=== PATIENT | female | born 1965 | race Caucasian/White ===

== ENCOUNTER 2016-08-01 11:49 | Emergency (ER) | payer OTHER | END 2016-08-01 13:40 | disposition home or self-care (01) | DX: J18.9 Pneumonia, unspecified organism (principal); Z87.891 Personal history of nicotine dependence ==

== ENCOUNTER 2019-07-28 15:49 | Outpatient (CLI) | payer OTHER ==
--- NOTE | 2019-08-02 11:05 | Mammography Report ---
Reason: ROUTINE MAMMO Procedure Date: 07/28/2019 Accession Number: [id number] / [id number] Procedure: MGN - Screening Mammo Dig Bilat CPT Code: Final Report FULL RESULT: EXAM: Screening Mammo Dig Bilat DATE: 07/28/2019 4:09 PM CLINICAL HISTORY: The patient is an asymptomatic 54-year-old female. Late childbearing. Family history breast cancer (sister). TECHNIQUE: (B) - Bilateral CC, laterally exaggerated CC, MLO views were obtained. COMPARISON: 05/11/2014, 03/28/2013, 10/30/2011 PARENCHYMAL PATTERN: (D) - The breasts demonstrate heterogeneously dense fibroglandular parenchyma bilaterally. FINDINGS: The pattern of asymmetry is stable given positional differences. There are no suspicious masses, calcifications, or areas of distortion. IMPRESSION: Negative examination. BI-RADS category 1. RECOMMENDATION: (ANNUAL) - Recommend routine annual screening mammography. BI-RADS CATEGORY: (1) - Negative. STANDARD QUALIFYING STATEMENTS: A negative or benign imaging report should not preclude biopsy if clinically suspicious findings are present. Dense breasts may obscure an underlying neoplasm.
== END 2019-07-28 15:50 | disposition home or self-care (01) ==
LOC: DI.N 15:49
PROVIDERS: ATTEND Family Medicine
DX: Z12.31 Encounter for screening mammogram for malignant neoplasm of breast (principal); Z80.3 Family history of malignant neoplasm of breast
CPT/HCPCS: 77067